=== PATIENT | female | born 1985 | race Caucasian/White ===

== ENCOUNTER → 2017-02-27 | Outpatient (CLI) | payer MEDICAID, SELFPAY | PROVIDERS: Visit Provider Nurse Practitioner Psychiatric/Mental Health | DX: F43.10 Post-traumatic stress disorder, unspecified (principal); F32.89 Other specified depressive episodes | CPT/HCPCS: 90836; 99214 ==

== ENCOUNTER → 2017-03-15 | Outpatient (CLI) | payer MEDICAID, SELFPAY | PROVIDERS: Visit Provider Nurse Practitioner Psychiatric/Mental Health | DX: F43.10 Post-traumatic stress disorder, unspecified (principal); F32.89 Other specified depressive episodes; F41.9 Anxiety disorder, unspecified | CPT/HCPCS: 90834; 90836; 99215 ==

== ENCOUNTER → 2017-03-25 | Outpatient (CLI) | payer MEDICAID, SELFPAY | PROVIDERS: Visit Provider Nurse Practitioner Psychiatric/Mental Health | DX: F43.10 Post-traumatic stress disorder, unspecified (principal); F32.89 Other specified depressive episodes; F29 Unspecified psychosis not due to a substance or known physiological condition | CPT/HCPCS: 90836; 99214 ==

== ENCOUNTER → 2017-04-01 | Outpatient (CLI) | payer MEDICAID, SELFPAY | PROVIDERS: Visit Provider Nurse Practitioner Psychiatric/Mental Health | DX: F43.10 Post-traumatic stress disorder, unspecified (principal); F32.89 Other specified depressive episodes; F29 Unspecified psychosis not due to a substance or known physiological condition | CPT/HCPCS: 90836; 99214 ==

== ENCOUNTER → 2017-05-01 | Outpatient (CLI) | payer MEDICARE, MEDICAID, SELFPAY | PROVIDERS: Visit Provider Nurse Practitioner Psychiatric/Mental Health | DX: F29 Unspecified psychosis not due to a substance or known physiological condition (principal); F43.10 Post-traumatic stress disorder, unspecified; F32.89 Other specified depressive episodes; F41.9 Anxiety disorder, unspecified | CPT/HCPCS: 90836; 99214 ==

== ENCOUNTER → 2017-05-06 | Outpatient (CLI) | payer MEDICARE, MEDICAID, SELFPAY | PROVIDERS: Visit Provider Nurse Practitioner Psychiatric/Mental Health | DX: F43.10 Post-traumatic stress disorder, unspecified (principal); F32.89 Other specified depressive episodes; F29 Unspecified psychosis not due to a substance or known physiological condition | CPT/HCPCS: 90836; 99214 ==

== ENCOUNTER → 2017-05-15 | Outpatient (CLI) | payer MEDICARE, MEDICAID, SELFPAY | PROVIDERS: Visit Provider Social Worker Clinical | DX: F43.12 Post-traumatic stress disorder, chronic (principal); F32.89 Other specified depressive episodes | CPT/HCPCS: 90837 ==

== ENCOUNTER 2018-03-28 06:45 | Day surgery (SDC) | payer MEDICARE, MEDICAID, SELFPAY ==
[2018-03-28] VITALS (21 sets, daily range): BP systolic 90–117; BP diastolic 49–83; PULSE 63–93; RESP 10–20; TEMP 36.1–36.8; O2SAT 93–99; BMI 23.1
[2018-03-28] MEDS: LACTATED RINGERS 1,000 ML 100 ML IV ×3 (07:25→21:55)
[2018-03-28] MEDS: CEFAZOLIN 2 GM/100 ML FROZ.PIGGY IV (07:45)
--- NOTE | 2018-03-28 08:17 | SUR.OPER ---
Lithotomy on padded OR bed, head on pillow, arms secured on padded arm boards at <90 degrees abduction. Legs secured in padded yellow fins stirrups.
[2018-03-28] MEDS: BUPIVACAINE 0.25% W/ EPI VIAL 50 ML INJ (08:25)
--- NOTE | 2018-03-28 09:19 | PM.PREOP ---
Pre-operative Note Interval Note Pre-op Check: Yes History & Physical Reviewed by Physician Changes: No
[2018-03-28] MEDS: HYDROMORPHONE 2 MG INJ 0.5 MG IV ×6 (09:27→10:10)
[2018-03-28] MEDS: KETOROLAC 30 MG/ML VIAL IV ×3 (11:37→23:48)
[2018-03-28] MEDS: OXYCODONE/ACETAMINOPHEN 5/325 TABLET 2 TAB PO ×4 (11:47→23:41)
[2018-03-28] MEDS: GABAPENTIN 100 MG CAPSULE PO (16:07)
--- NOTE | 2018-03-28 16:08 | PC.NURSE ---
Day Shift- Report rec'd from [employer] at 1005. Pt having pain issues, update rec'd at 1025 and pt ready to come to unit. Pt arrived on unit at 1035, states eyes feel heavy but able to respond to questions. Vincenzo at bedside. Pt reports 4/10 pain to pelvic area with pressure. Rogers insitu draining clear yellow urine, no drainage on cami pad. IVF started per order, pt given water, milk and marybel crackers. Ate all. Toradol IV prn given at 1135 and Percocet 2 tabs given at 1145. Oriented to post op routines and call light.
--- NOTE | 2018-03-28 16:27 | CM.IDA ---
Discharge Planning/Care Management CM Discharge Assessment Start: 03/28/18 16:23 Freq: Status: Active Protocol: Document 03/28/18 16:24 SONNY (Rec: 03/28/18 16:27 SONNY [email or web address]) Discharge Planning Assessment Assigned Pharmacy Resource Tech VICENTA Masterson DPOA/Assigned Designee Name Tereso Mcneil, spouse Contact Information [phone] Advance Directives? No History Provided By Significant Other Prior Living Arrangements Apartment/Condo Household Members spouse children Type of transporation used prior to Relies on Others admit Comment H/o TBI, see PMH Independent with ADL's Yes Is patient alert and oriented? Yes Caregiver for Another Yes: young child Barriers to Discharge No Comment Met w/pt and spouse, pt very groggy and just returned from the OR, this AEMT explained role. Pt/spouse appreciative of the visit and expect pt to return home w/supportive family and cg to assist when medically stable. Contact information left in case plans change or DC questions or concerns arise. Discharge Plan Home Transportation Arrangement Family Referrals Initiated None needed Whiteboard Updated in Patient Room with Yes name and ext. # of Pharmacy Resource Tech Pre-Anesthesia Assessment Start: 01/17/18 14:00 Freq: Status: Complete Protocol: Document 01/17/18 14:00 NAEL (Rec: 01/17/18 14:26 Aren [id number]) Pre-Anesthesia Assessment Patient Information Reviewed Via Chart Review Seen Specialist in Last 12 Months Yes Specialist Seen Psychotherapist Other Comment Phychotherapist - Tracey Meek Smoking Status Never smoker Marital Status Lives With spouse Prior Living Arrangements House Support System Caregiver Spouse Comment caregiver ([facility] program) and Mother [place] for parenting skills Advance Directives? No
[2018-03-28] MEDS: HYDROMORPHONE 0.5 MG INJ IV ×2 (18:40→22:31)
[2018-03-28] MEDS: lamoTRIgine 100 MG TABLET PO (19:59)
[2018-03-28] MEDS: GABAPENTIN 600 MG TABLET PO (19:59)
[2018-03-28] MEDS: ZIPRASIDONE 80 MG 80 EACH PO (20:00)
[2018-03-28] MEDS: ZOLPIDEM 5 MG TABLET 10 MG PO (20:04)
[2018-03-28] MEDS: DOCUSATE 250 MG CAPSULE PO (20:34)
[2018-03-29] MEDS: HYDROMORPHONE 0.5 MG INJ IV (01:40)
--- NOTE | 2018-03-29 03:31 | PC.NURSE ---
pt stating pelvic pain 12/03,did decr to 6 after 2tabs percocet and 30mg toradol, pt tearful, reporting not able to sleep, call out to Dr. benedict w/new order rec'd for now dose of dilaudid 0.5g now and then chg to q3hrs prn. now dose given, pt rechecked , sleeping w/no outward s/s pain/distress.
[2018-03-29] MEDS: OXYCODONE/ACETAMINOPHEN 5/325 TABLET 2 TAB PO ×3 (04:18→12:15)
[2018-03-29 05:35] VITALS: BP 95/57; PULSE 69; RESP 18; TEMP 36.3; O2SAT 97
[2018-03-29] MEDS: KETOROLAC 30 MG/ML VIAL IV (07:26)
[2018-03-29 08:00] VITALS: BP 104/69; PULSE 69; RESP 16; TEMP 36.4; O2SAT 98
[2018-03-29] MEDS: ZIPRASIDONE 80 MG 80 EACH PO (08:24)
[2018-03-29] MEDS: lamoTRIgine 100 MG TABLET PO (08:24)
[2018-03-29] MEDS: GABAPENTIN 100 MG CAPSULE PO (08:24)
[2018-03-29] MEDS: DOCUSATE 250 MG CAPSULE PO (08:24)
[2018-03-29 09:00] LABS: Add Manual Diff / Slide Review NO; Eosinophils Percent Auto 1.1 % (2-4); Hematocrit 32.5 % (36-46); Lymphocytes Percent Auto 16.4 % (25-40); Mean Corpuscular HGB Conc 33.9 % (30-36); Mean Corpuscular Hemoglobin 30.4 PG (26-34); Mean Corpuscular Volume 89.7 fL (80-100); Monocytes Percent Auto 5.8 % (3-14); Neutrophils Absolute Auto 10800 /uL (3000-5900); Neutrophils Percent Auto 75.7 % (50-75); Platelet Count 722 X10^3/uL (150-400); Red Blood Cell Count 3.62 X10^6/uL (4.0-5.2); Red Cell Distribution Width 13.9 % (11.6-14.8); White Blood Cell Count 14.2 X10^3/uL (4.5-11.0)
--- NOTE | 2018-03-29 11:30 | PC.NURSE ---
Pts ricketts catheter taken out at 0800am and pt voided 350cc of yellow urine with small amount of blood at 1035. She was bladder scanned and had 43cc of urine in her bladder. Called and pt can be discharged home. She is to void every 2.5 to 3 hours to empy her bladder.
[2018-03-29 11:35] VITALS: BP 100/63; PULSE 86; RESP 14; TEMP 36.3; O2SAT 97
--- NOTE | 2018-03-29 11:38 | CM.DPC ---
DCP Discharge Home Per MD, pt voided and can d/c home today and no identified barriers to discharge. Per RN, pt has successfully voided since ricketts was discontinued and no concerns at this time. Plan: Patient to d/c home today via POV and [facility] CG to continue providing support after d/c. No SW needs at this time. VICENTA Espinal
--- NOTE | 2018-04-23 20:37 | P.OP_ITS ---
Operative Date/Time/Diagnoses Date of procedure: 03/28/18 Time of procedure: 09:20 Pre-op diagnosis: Symptomatic cystocele and rectocele Post-op diagnosis: same Procedure: Procedures Operation Date: 03/28/18 07:45 Actual Procedures Side Surgeon p Colporrhaphy Anterior/Posterior Colporrhaphy Michelle Celis MD Indications: Symptomatic cystocele and rectocele Surgeon: Michelle Celis Senior Publications Specialist: Ingris Mata Anesthesia Type: General Operative Notes Findings: Third-degree cystocele Third-degree rectocele Closure Type: primary Specimen(s): none Applied: catheter Estimated blood loss (mL): 75 Blood products transfused: none Procedure in detail: Two Allis clamps were placed at the apex of the cystocele. 6 mL of half percent Marcaine with epinephrine were injected and an incision was made with a #10 blade between the 2 Allis clamps. Wide Allis clamps were placed on the midline of the cystocele approximately 5. The mucosa was undermined using the Metzenbaum scissors and the mucosa incised in the midline moving the wide Allis clamps to the edges of the mucosa. The mucosa was dissected off the underlying fascia using an open moistened Ray-Sonal and a #10 blade. The fascia was reapproximated with 0 Vicryl with a series of horizontal mattress sutures. The excess vaginal mucosa was excised. The mucosa was closed using simple interrupted sutures with 2-0 Vicryl including the underlying fascia to close the space. The weighted speculum was removed from the vagina. Allis clamps were placed at the mucocutaneous junction at the introitus. 6 mL of half percent Marcaine with epinephrine were injected. An incision was made with a #10 blade between the 2 Allis clamps, and a triangular piece of skin and underlying subcutaneous tissue was removed. Allis clamps were placed in the midline of the rectocele. 10 mL of half percent Marcaine with epinephrine were injected submucosally. The mucosa was undermined using the Metzenbaum scissors and the mucosa incised in the midline, moving the wide Allis clamps to the mucosal edges. The underlying fascia was dissected off of th mucosa using an open moistened Ray-Sonal and a #10 blade. The fascia was reapproximated using 0 Vicryl with a series of horizontal mattress sutures. The excess vaginal mucosa was excised. The mucosa was closed using a series of simple interrupted sutures with 2-0 Vicryl including the underlying fascia to close the space. On the perineum 0 Vicryl was used to reapproximate the levator muscle. The subcutaneous layer was closed with 2-0 Vicryl. The skin was closed with 3-0 chromic in a subcuticular fashion. Hemostasis was achieved. A Betadine moistened vaginal pack was placed into the vagina. A rectal exam was done and there were no sutures palpable in the rectum. The urine was clear. Sponge, lap, and instrument counts were correctx2. The patient tolerated the procedure well, was taken to PACU in stable condition. Complications: none Post-operative Condition: stable Disposition: PACU Plan for aftercare: To acute care after recovery
--- NOTE | 2018-04-25 13:13 | P.OP_ITS ---
Operative Date/Time/Diagnoses Date of procedure: 03/28/18 Time of procedure: 09:50 Pre-op diagnosis: Symptomatic cystocele and rectocele Post-op diagnosis: same Procedure: Procedures Operation Date: 03/28/18 07:45 Actual Procedures Side Surgeon p Colporrhaphy Anterior/Posterior Colporrhaphy Michelle Celis MD Indications: Symptomatic cystocele and rectocele Surgeon: Michelle Celis Homeowner Association Manager: Ingris Mata Anesthesia Type: General Operative Notes Findings: Second-degree cystocele Second-degree rectocele Closure Type: primary Specimen(s): none Applied: catheter Estimated blood loss (mL): 100 Blood products transfused: none Procedure in detail: The patient was taken to the operating room where she was placed in the dorsal supine position. After adequate general endotracheal anesthesia was achieved, she was placed in the dorsal lithotomy position, and prepped and draped in the usual sterile fashion. A time-out was performed. Two Allis clamps were placed at the apex of the cystocele. 6 mL of half percent Marcaine with epinephrine were injected and an incision was made with a #10 blade between the 2 Allis clamps. Wide Allis clamps were placed on the midline of the cystocele approximately 6. The mucosa was undermined using the Metzenbaum scissors and the mucosa incised in the midline moving the wide Allis clamps to the edges of the mucosa. The mucosa was dissected off the underlying fascia using an open moistened Ray-Sonal and a #10 blade. The fascia was reapproximated with 0 Vicryl with a series of horizontal mattress sutures. The excess vaginal mucosa was excised. The mucosa was closed using simple interrupted sutures with 2-0 Vicryl including the underlying fascia to close the space. Hemostasis was achieved. The weighted speculum was removed from the vagina. Allis clamps were placed at the mucocutaneous junction at the introitus. 6 mL of half percent Marcaine with epinephrine were injected. An incision was made with a #10 blade between the 2 Allis clamps, and a triangular piece of skin and underlying subcutaneous tissue was removed. Allis clamps were placed in the midline of the rectocele. 10 mL of half percent Marcaine with epinephrine were injected submucosally. The mucosa was undermined using the Metzenbaum scissors and the mucosa incised in the midline, moving the wide Allis clamps to the mucosal edges. The underlying fascia was dissected off of th mucosa using an open moistened Ray-Sonal and a #10 blade. The fascia was reapproximated using 0 Vicryl with a series of horizontal mattress sutures. The excess vaginal mucosa was excised. The mucosa was closed using a series of simple interrupted sutures with 2-0 Vicryl including the underlying fascia to close the space. On the perineum 0 Vicryl was used to reapproximate the levator muscle. The subcutaneous layer was closed with 2-0 Vicryl. The skin was closed with 3-0 chromic in a subcuticular fashion. Hemostasis was achieved. A Betadine moistened vaginal pack was placed into the vagina. A rectal exam was done and there were no sutures palpable in the rectum. The urine was clear. Sponge, lap, and instrument counts were correct x-2. The patient tolerated the procedure well, was taken to PACU in stable condition. Complications: none Post-operative Condition: stable Disposition: PACU Plan for aftercare: To acute care after recovery
--- NOTE | 2018-06-06 10:50 | PM.DS.1 ---
History of Present Illness Date Patient Seen: 03/29/18 Time Patient Seen: 08:30 Chief complaint: *OPB*anterior posterior repair cystocele [id number] Discharge Providers Date of admission: 03/28/2018 Discharge provider: Michelle Celis MD Discharge Date: 03/29/18 Summary Discharge Diagnosis: Symptomatic cystocele and rectocele Status post anterior and posterior repair Hospital Course: Patient is a 33-year-old who presented on 03/28/2018 for a scheduled anterior and posterior repair. She underwent this procedure without complication. On postop day # 1 the Rogers catheter was removed. She was able to void without residuals. She tolerated a diet. Pain was well controlled. Her vaginal packing was removed and was dry. Exam Vital Signs (past 8 hours): Oxygen Delivery Method Room Air Oxygen Flow Rate 0 Narrative Exam Narrative: Generally: Patient sitting up in bed, no acute distress Lungs: Clear to auscultation bilaterally Cardiovascular: Regular rate and rhythm Abdomen: Soft and flat. Good bowel sounds. Perineum: Dry. Packing removed from the vagina and was dry. Extremities: Negative Homans, no edema Objective Labs Result Diagrams: 03/29/18 08:20 Discharge Plan Discharge Plan Patient Disposition: Home Discharge comment: Call with fever, chills or bleeding vaginally more than spotty to light Discharge Med Rec/Prescriptions Prescriptions: Continue ferrous fumarate 324 mg (106 mg iron) tablet 324 mg PO BID RF: 0 aspirin [Aspirin Low Dose] 81 mg Tablet,Delayed Release (Dr/Ec) 81 mg PO DAILY RF: 0 cyanocobalamin (vitamin B-12) 50 mcg Tablet 1 tab PO DAILY RF: 0 cholecalciferol (vitamin D3) [Vitamin D3] 400 unit Capsule 1 tab PO DAILY RF: 0 diphenhydramine HCl [Benadryl] 25 mg Capsule 25 mg PO Q4-6H PRN (Reason: Allergic Symptoms) RF: 0 gabapentin 100 mg Capsule 100 mg PO TID RF: 0 No Action oxycodone-acetaminophen [Percocet] 5-325 mg tablet 1 tab PO Q4-6H PRN (Reason: pain) Qty: 20 RF: 0 ziprasidone HCl 20 mg capsule 80 mg PO BID RF: 0 lamotrigine [Lamictal] 100 mg tablet 100 mg PO BID RF: 0 zolpidem 10 mg tablet 10 mg PO BEDTIME RF: 0 multivitamin Capsule 1 cap PO TID RF: 0 Follow up/Referrals: Michelle Celis MD [Physician] - (3 weeks) Discharge Orders: Discharge (Order); Ordered 03/29/18 Ordered By: Michelle Celis Provider Discharge Instructions Diet: Diet as Tolerated and Regular Activity: No heavy lifting. No intercourse Skin/Wound/Dressing Care Report to your healthcare provider any signs of infection, such as:: chills, fever, increased pain and unusual drainage Visit Report/Discharge Packet Instructions: Cystocele/Rectocele, Cystocele and Rectocele Repair, Oxycodone Stand Alone Forms: Surgery Discharge Discharge Data Attending Provider: Michelle Celis Discharges patient from system. Discharge Date/Time: 03/29/18 12:22 Quality VTE Deep Vein Thrombosis/Pulmonary Embolism Present on Admission: No
== END 2018-03-29 12:22 | disposition home or self-care (01) ==
LOC: OR 06:48 → AC 06:55
PROVIDERS: Visit Provider Obstetrics & Gynecology
PROC: (CPT 57260; principal; 2018-03-28 07:45)
DX: N81.3 Complete uterovaginal prolapse (principal)
CPT/HCPCS: 57260; 36415; 85025; J0690; J1100; J1170; J1885; J2405; J2704; J3010